=== PATIENT | female | born 1995 | race Hispanic/Latino ===

== ENCOUNTER → 2018-06-18 | Emergency (ER) | payer BC ==
[2018-06-18 19:41] VITALS: BMI 31.2
--- NOTE | 2018-06-18 20:48 | OBHP ---
Datetime: 06/18/2018 20:01 IP Adm Impression: Term, intrauterine IP Admit Plan: Observation/Evaluation; Discharge home Admit Comment, IP Provider: 23 yo at 40 wks w/ EDC 06/18/2018 bu u/s who was sent from [facility] in [facility] for AUSTEN 7.41 cm/vertex today. Pt reports that her doctor is concerned that the fluid is lower than usual. Pt reports that her pantieds have felt wet for the last couple of days. Pt rep orts difficulty keeping food down, vomting x 2 weeks, denies VB, reports decreased FM today, reports feeling some cramps today. 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 No evidence of ruptured membranes on ex am. NST reactive. BPP 8/8, AUSTEN 13. Pt to be discharged home and will follow up w/ her OB tomorrow. Extremities - PN: Normal Abdomen - PN: Normal Back - PN: Normal Lungs - PN: Normal Heart - PN: Normal Neurologic - PN: Normal General - PN: Normal FHR - Baseline A Provider: 120's Membranes, Provider: Intact Contraction Comments Provider: irritability Comments, ACOG Physical Exam: Spec: watery white d/c in vault, neg nitrazine, neg ferning Pool Provider: Negative Nitrazine Provider: Negative Ferning Provider: Negative Vital Signs Provider: Reviewed IP Chief Complaint: evaluation NICHD Variability Prov Fetus A: Moderate 6-25bpm NICHD Accel Fetus A IP Provider: 15X15 FHR Category Provider Fetus A: Category I NICHD Decel Fetus A IP Provider: None Dilatation, Provider: 0 Effacement, Provider: 0 Station, Provider: -2 Genitourinary Exam: Normal
[2018-06-19 02:43] VITALS: BP 115/69; PULSE 84
--- NOTE | 2018-06-19 14:45 | US ---
Date of service: 06/18/2018 PROCEDURE: Biophysical profile HISTORY: decreased movement COMPARISON: None TECHNIQUE: Standard protocol for this study/examination. FINDINGS: FINDINGS: Biophysical profile score 8/8 Based on the followin. breathing movements: 2/2 2. Gross body movement: 2/2 3. tone: 2/2 4. Qualitative amniotic fluid index: 2/2 Quantitative amniotic fluid index 13.3 cm. Closed cervix 3.6 cm. Cephalic presentation. Fundal/posterior Placenta. No evidence of abruption or previa Gestational age derived from LMP 40 weeks. ASIA 06/18/2018.. Gestational age derived from the following biometric parameters thirty-eight weeks 2 days. ASIA 06/30/2018. Biparietal diameter 9.4 cm Head circumference 33.3 cm Abdominal circumference 34.7 cm Femur length 7.5 cm Estimated weight 348 for g Calculated cardiac rate 132 beats per min. Closed cervix measuring 3.60 cm IMPRESSION: Biophysical profile score 8/8. Live intrauterine gestation 38 weeks 2 days. Gestational concordance documented. Additional information provided above. Concordant results (preliminary interpretation) provided by [facility]. Procedure Completed: 20:19 Final Interpretation: 14:43. June 19, 2018.
== END | disposition home or self-care (01) ==
LOC: H.EROB2 18:39
DX: O41.03X0 Oligohydramnios, third trimester, not applicable or unspecified (principal); Z3A.40 40 weeks gestation of pregnancy; O48.0 Post-term pregnancy; O47.1 False labor at or after 37 completed weeks of gestation

== ENCOUNTER 2018-06-28 12:26 | Inpatient (IN) | payer BC ==
[2018-06-18 19:41] VITALS: BMI 31.2
[2018-06-28 21:59] LABS: HEMOGLOBIN 12.7 g/dL (12.0-16.0); MEAN CELL VOLUME 84.8 fl (81.0-99.0); MEAN CORPUSCULAR HEMOGLOBIN 28.4 pg (27.0-31.0); MEAN CORPUSCULAR HGB CONC 33.5 g/dL (33.0-37.0); RBC 4.47 Mil/uL (3.80-5.20); RED CELL DISTRIBUTION WIDTH 15.8 % (11.5-14.5); WHITE BLOOD COUNT 8.9 K/uL (4.8-10.8)
--- NOTE | 2018-06-29 12:22 | OBPN ---
Datetime: 06/29/2018 10:13 IP Progress Impression: Normal progression of labor IP Informed Consent Obtain: Vaginal Delivery IP Progress Plan: Continue present management Contraction Comments Provider: q 3-4 mins FHR - Baseline A Provider: 125 IP Progress Note Comment: Patient evaluated, feeling contractions, did not want pain medication at t his time Ve=closed/thick/high [id number] mod bhumi, +accels, no decels TOCO = ctxing q 3-4 mins A/P 1. Cervidil removed by Dr. Pittman, pt still closed. Will start Cytotect for induction 2. CEFm and TOCO 3. Re-evaluate as needed NICHD Accel Fetus A IP Provider: [id number] NICHD Variability Prov Fetus A: Moderate 6-25bpm Dilatation, Provider: closed NICHD Decel Fetus A IP Provider: None Datetime: 06/28/2018 21:23 Vital Signs Provider: Reviewed; Within Normal Limits FHR Category Provider Fetus A: Category I Effacement, Provider: 10 Datetime: 06/18/2018 20:01 Pool Provider: Negative Nitrazine Provider: Negative Ferning Provider: Negative Membranes, Provider: Intact Station, Provider: -2
[2018-06-29] MEDS ORDERED: Phenaphthazine-PH Test Paper VI ONE (15:51)
[2018-06-29] MEDS ORDERED: Lactated Ringer's 2,000 ML IV ONE (16:55)
[2018-06-29] MEDS ORDERED: Oxytocin 30 UNIT 30 UNITS/500 ML BAG IV ONE ×2 (17:42→18:28)
[2018-06-29] MEDS ORDERED: Fentanyl/Bupivacaine HCl 250 ML EPI ONE (18:02)
[2018-06-29] MEDS: Lactated Ringer's 1,000 ML IV SCH (18:05)
[2018-06-30] MEDS: Lactated Ringer's 1,000 ML IV SCH (02:00)
[2018-06-30] MEDS ORDERED: Oxytocin 20 units in LR 2,000 ML IV ONE (05:27)
[2018-06-30] MEDS ORDERED: Lidocaine 2% MPF (5 ml) Inj ONE (05:31)
--- NOTE | 2018-06-30 09:01 | OBPN ---
Datetime: 06/30/2018 08:30 IP Progress Impression: Normal progression of labor; Reassuring heart rate IP Informed Consent Obtain: Vaginal Delivery; Risks, Benefits and Alternatives Discussed IP Progress Plan: Continue present management; Augmentation; Anticipate Vaginal Delivery Contraction Comments Provider: 2-4m FHR - Baseline A Provider: 135 Presentation-Admit: Vertex IP Progress Note Comment: OB Hospitalist on-call: Sign out rec'd Earlier noted to be 10 at 7:30am She feels comfortable onm left lateral with peanut in btw legs PNC: last sono 8lb last week acc to pt A: Second stage of labor PLAN: Discussion with patient about condition, labor, pain managment (rec'd epidural), medicxation s (Pitocin at 6miu/h)..anticipate NICHD Accel Fetus A IP Provider: 15X15 FHR Category Provider Fetus A: Category I NICHD Variability Prov Fetus A: Moderate 6-25bpm Dilatation, Provider: 10 Effacement, Provider: 100 Station, Provider: 0 NICHD Decel Fetus A IP Provider: None Datetime: 06/29/2018 10:13 Gestation - Est Wks by US: 41.4 Vital Signs Provider: Reviewed; Within Normal Limits
[2018-06-30] MEDS ORDERED: AMPicillin 2 GM in Sodium Chloride 0.9% 100 ML IVPB SCH (11:20)
[2018-06-30] MEDS: SODIUM CHLORIDE 0.9% IVPB SCH (11:30)
[2018-06-30] MEDS: GENTAMICIN IVPB SCH (11:30)
[2018-06-30 11:38] LABS: BASO % 0.1 % (0.0-2.0); HEMOGLOBIN 12.7 g/dL (12.0-16.0); LYMPH # 0.9 K/uL (1.0-4.3); LYMPH % 3.6 % (20.0-40.0); MEAN CELL VOLUME 84.9 fl (81.0-99.0); MEAN CORPUSCULAR HEMOGLOBIN 28.4 pg (27.0-31.0); MEAN CORPUSCULAR HGB CONC 33.5 g/dL (33.0-37.0); MEAN PLATELET VOLUME 9.5 fl (7.2-11.7); MONO # 2.3 K/uL (0.0-0.8); MONO % 9.5 % (0.0-10.0); NEUT # 20.7 K/uL (1.8-7.0); NEUT % 86.8 % (50.0-75.0); PLATELET COUNT 211 K/uL (130-400); RBC 4.48 Mil/uL (3.80-5.20); RED CELL DISTRIBUTION WIDTH 15.4 % (11.5-14.5); WHITE BLOOD COUNT 23.8 K/uL (4.8-10.8)
[2018-06-30] MEDS ORDERED: Lidocaine 2% PF (10 ml) Amp ONE ×3 (12:17→12:24)
[2018-06-30] MEDS ORDERED: Morphine 5 mg/10 ml preservative-free Inj(Duramorph) ONE (12:33)
[2018-06-30] MEDS ORDERED: Phenylephrine 10 mg/ml Inj ONE (12:35)
[2018-06-30 12:59] LABS: BANDS 3 % (0-2); LYMPHOCYTE 5 % (20-50); MONOCYTE 9 % (0-10); NEUTROPHIL 83 % (42-75); PLATELET ESTIMATE NORMAL (NORMAL); TOTAL CELLS COUNTED 100
[2018-06-30 13:00] LABS: ANISOCYTOSIS SLIGHT; LARGE PLATELETS PRESENT; TEARDROP CELLS SLIGHT
[2018-06-30] MEDS ORDERED: Oxycodone/Acetaminophen 5/325 mg Tab PO PRN (13:35)
[2018-06-30] MEDS ORDERED: DiphenhydrAMINE 50 mg/ml Inj IVP PRN (13:36)
[2018-06-30] MEDS ORDERED: Morphine 5 MG/ML SYRINGE IV PRN (13:36)
[2018-06-30] MEDS: OXYTOCIN/0.9 % NS 20 UNIT/1,000 ML BAG IV SCH ×2 (14:00→18:17)
--- NOTE | 2018-06-30 14:12 | OBPN ---
Datetime: 06/30/2018 12:00 IP Progress Impression: Arrest of dilatation/descent IP Informed Consent Obtain: Section Delivery; Risks, Benefits and Alternatives Discussed IP Progress Plan: Deliver- Section Contraction Comments Provider: 2-3m FHR Category Provider Fetus A: Category II Dilatation, Provider: 10 Effacement, Provider: 100 Station, Provider: 0 NICHD Decel Fetus A IP Provider: Variable Datetime: 06/30/2018 11:19 Membranes, Provider: Ruptured IP Progress Note Comment: Patient febrile at 100.6; reports she feels contraction pain, otherwise no complaints. A/P Suspected chorioamnionitis Blood culture and CBC drawn Start ampcillin 2mg Q6 hrs, and gentamicin 5mg/kg (pt is 73 kg, so dose is 365 mg) daily Tylenol for fever Monitor VS Expect vaginal delivery Discussed w/ Dr. Lindsey [id number] OB Hospitalist on-call. Pt seen. Second stage of labor 0 staion...febrile in labor - agree woth note. Peds notified. MAHN DO Vital Signs Provider: Reviewed Vital Signs Provider Details: febrile 100.6
[2018-06-30] MEDS: AMPicillin 2 GM in Sodium Chloride 0.9% 100 ML IVPB SCH (18:12)
[2018-07-01] MEDS: AMPicillin 2 GM in Sodium Chloride 0.9% 100 ML IVPB SCH ×5 (00:12→23:27)
[2018-07-01 06:51] LABS: HEMOGLOBIN 10.4 g/dL (12.0-16.0); MEAN CELL VOLUME 85.3 fl (81.0-99.0); MEAN CORPUSCULAR HEMOGLOBIN 28.2 pg (27.0-31.0); MEAN CORPUSCULAR HGB CONC 33.1 g/dL (33.0-37.0); RBC 3.7 Mil/uL (3.80-5.20); RED CELL DISTRIBUTION WIDTH 15.7 % (11.5-14.5); WHITE BLOOD COUNT 15.9 K/uL (4.8-10.8)
--- NOTE | 2018-07-01 07:18 | OBPPN ---
Datetime: 07/01/2018 07:11 PP Pain Prov: Within normal limits PP Nausea Prov: Denies PP Flatus Prov: No PP BM Prov: No PP Abdomen/Uterus Prov: Normal PP Lochia Prov: Normal PP Vulva/Perineum Prov: Not Done PP C/S Incision Prov: Normal PP Progress Prov: Normal PP Comments Phys Exam Prov: Incision w/ bandage in place PP Impression Prov: Normal progression PP Plan Prov: Continue present management PP Progress Note Prov: POD 1 s/p primary c/s for arrrest of descent, doing well, breast and bottle f eeding Advance diet as tolerated OOB today Vital Signs Provider PP: Reviewed
[2018-07-01] MEDS: Multivitamin With Minerals Tab PO SCH (09:16)
[2018-07-01] MEDS: Oxycodone/Acetaminophen 5/325 mg Tab PO PRN ×2 (09:16→22:22)
[2018-07-01] MEDS: SODIUM CHLORIDE 0.9% IVPB SCH (11:16)
[2018-07-01] MEDS: GENTAMICIN IVPB SCH (11:16)
[2018-07-02] MEDS: AMPicillin 2 GM in Sodium Chloride 0.9% 100 ML IVPB SCH (05:21)
[2018-07-02 06:59] LABS: BASO % 0.3 % (0.0-2.0); EOS % 0.4 % (0.0-4.0); HEMOGLOBIN 11.4 g/dL (12.0-16.0); LYMPH # 2.8 K/uL (1.0-4.3); LYMPH % 22.5 % (20.0-40.0); MEAN CELL VOLUME 86.8 fl (81.0-99.0); MEAN CORPUSCULAR HEMOGLOBIN 28.4 pg (27.0-31.0); MEAN CORPUSCULAR HGB CONC 32.7 g/dL (33.0-37.0); MEAN PLATELET VOLUME 8.8 fl (7.2-11.7); MONO % 7.8 % (0.0-10.0); NEUT # 8.7 K/uL (1.8-7.0); RBC 4.03 Mil/uL (3.80-5.20); RED CELL DISTRIBUTION WIDTH 15.8 % (11.5-14.5); WHITE BLOOD COUNT 12.6 K/uL (4.8-10.8)
[2018-07-02] MEDS: Multivitamin With Minerals Tab PO SCH (08:02)
--- NOTE | 2018-07-02 10:09 | OBPPN ---
Datetime: 07/02/2018 07:20 PP Progress Note Prov: Patient seen and examined this AM, patient is , POD2 today. Patient re ports today ambulating to the bathroom w/o difficulties or dizziness, voiding well w/ no blood in uri ne, lochia is less than menses in volume, she si tolerating oral food, is passing gas per rectum but has not had a BM yet. Patient reports some pelvic pain that gets releief with pain medication. Jany damon denies MATTHEWS, N/V, dizziness, chest pain, SOB, palpitations. Patient c/o leg swelling ,but denies calf pain. Physical exam GEN:NAD HEENT: Normocephalic, EOMI RESP: CTA b/l CV: RRR, no murmurs noted ABD: soft, uterus firm at umbilical level, incision well aproximated, no redness or dischrge noted LE: no edema, Nelsy's negative. A/P 23 y/o , today in her POD2, patient was on antbs therapy on PPD1 for spiking fevers, jany damon is afebrile x more 24 h -D/C antibitoic tx -Motrin 600 mg PO q6h prn pain -Percocet 1 to 2 tbas PO q6h PRN pain/ severe -Ecourage and ambulation. -D/C david Millan MD PGY1. OB Hospitalist on-call. On rounds I saw and examined this jimi. Agree with note. She will be discharged POD 3 and follow up at my office 1-2w [facility]
[2018-07-03] MEDS: Oxycodone/Acetaminophen 5/325 mg Tab PO PRN (00:54)
[2018-07-03] MEDS: Multivitamin With Minerals Tab PO SCH (09:49)
--- NOTE | 2018-07-03 13:26 | OBDCSUM ---
Datetime: 07/03/2018 06:32 Discharged to, Provider: Home Follow up at, Provider: OBGYN Disch Instr Activity: Normal activity Disch Instr Diet: Regular Discharge Instructions, Provider: Routine instructions given Discharge Diagnosis, Provider: Term Delivered Discharge Time: 07/03/2018 12:50 Follow up in weeks, Provider: 7-11 days Contraception discussed, Prov: Yes Disch Activity Restrictions: No exercising; No lifting; No driving; No sexual activity; Nothing in v agina - Quanah, tampons, douche Discharge Comment, Provider: 23 y/o s/p C/section with 41.5 weeks of GA. Delivered baby girl on 06/30/18 @ 12:52, weight 3490 g, : 9/9. Patient is doing well, stable for discharge. Prescri ption given for pain. Physical exam GEN: NAD HEENT: Normocephalic, EOMI RESP: CTA b/l CV: RRR, no murmurs noted ABD: soft, uterus firm below umbilical level, incision well approximated, no redness or discharge noted LE: no edema, Nelsy's negative. D/C instructions: -Encourage -Ibuprofen 600 mg PO 1 tab PO Q6h for pain PRN -Percocet 5/325 mg 1 tab PO Q 6h PRN pain -Discharge today -Ambulate w/ caution, no heavy lifting, if bleeding, fever, abdominal pain without relief from Tyl enol go to ED - Instructions given for F/U with PMD visit within 1 to 2 weeks. Jeannine Millan MD PGY1 Contraception after Delivery: Control Pill/Patch
--- NOTE | 2018-07-03 13:26 | OBPPN ---
Datetime: 07/03/2018 06:23 PP Pain Prov: Within normal limits PP Nausea Prov: Denies PP Flatus Prov: Yes PP BM Prov: Yes PP Heart Prov: Normal PP Lungs Prov: Normal PP Abdomen/Uterus Prov: Normal PP Extremities Prov: Normal PP C/S Incision Prov: Normal PP Comments Phys Exam Prov: See progress note PP Impression Prov: Normal progression PP Plan Prov: Continue present management; Discharge PP Progress Note Prov: Patient seen and examined this AM, patient is , POD3 today. Patient re ports today ambulating to the bathroom w/o difficulties or dizziness, voiding well w/ no blood in uri ne, lochia is less than menses in volume, she is tolerating oral food, had a BM already. Patient repo rts some pelvic pain that gets relief with pain medication. Patient denies MATTHEWS, N/V, dizziness, chest pain, SOB, palpitations, calf pain. Physical exam GEN: NAD HEENT: Normocephalic, EOMI RESP: CTA b/l CV: RRR, no murmurs noted ABD: soft, uterus firm below umbilical level, incision well approximated, no redness or discharge noted LE: no edema, Nelsy's negative. A/P 23 y/o , with good progression going today in her PPD3 -Motrin 600 mg PO q6h prn pain -Percocet 1 tab PO q6h PRN pain/ severe -Encourage and ambulation. -D/C home today with instructions for f/u with PMD within 1 to 2 weeks. Jeannine Millan MD PGY1 ob attending addendum: pt seen _ examined by me. agree w/ above assessment and plan. (Annotations: Data stored by CPN on behalf of user) Vital Signs Provider PP: Reviewed; Within Normal Limits
[2018-07-04 02:03] VITALS: BP 112/73; PULSE 77; RESP 20; TEMP 98.7; O2SAT 98
--- NOTE | 2018-07-05 09:08 | OP ---
PROCEDURE DATE: 06/30/2018 PREOPERATIVE DIAGNOSES: Failure of descent and intrapartum fever. POSTOPERATIVE DIAGNOSES: Failure of descent and intrapartum fever. PROCEDURE: Primary low-transverse section via Pfannenstiel incision. SURGEON: Faustino Portillo DO [employer] SALES REPRESENTATIVE: Ervin Major MD (Dr. Ervin Major is a board certified OB-STRUCTURAL STEEL WORKER who was available to assist on this difficult case. He was present from the time of incision to the delivery of the , to the closure of the skin). SECOND [employer] SALES REPRESENTATIVE: Dr. Wagner, (PGY-2 Family Medicine). ANESTHESIOLOGIST: Cosme Woodard MD ANESTHESIA: Epidural. OPERATIVE FINDINGS: A live delivered from a cephalic presentation, scores of 9 and 9 given at 1 and 5 minutes respectively. Placenta was delivered intact spontaneously. Ovaries and tubes appeared to be within normal limits grossly. She tolerated the procedure well and was transferred to the recovery room in stable condition. All equipments, sponges, and needles accounted for. DESCRIPTION OF PROCEDURE: The patient was brought to the operating room. She had the compression boots placed on both lower extremities. Catheter was placed in the urethra and in to the bladder. Noted to be blood tinged urine because she has been fully dilated and pushing. She was placed in a supine position. She was then draped and prepped in the usual sterile manner. Once adequate anesthesia was obtained, a Pfannenstiel incision was made using a scalpel. Incision was then taken down to the underlying fascia using electrocautery. The fascia was nicked in the midline and extended bilaterally using electrocautery. The inferior aspect of the fascia was grasped using two Omayra clamps, tented up, and the rectus muscle was both bluntly and sharply dissected. The same was done with the superior aspect of the fascia. In the midline superiorly, rectus muscle was bluntly. Peritoneum was identified and tented up using 2 Iris clamps and then incised using Metzenbaum scissors. Upon entering the peritoneal cavity, incision was then extended superiorly and inferiorly with direct visualization of the bladder and intestines. Two wet lap pads were placed on the pericolic gutters. The peritoneum on the uterus was grasped using forceps and incised using Metzenbaum scissors. A bladder flap was created by extending this incision bilaterally. Using the Metzenbaum scissors, bladder flap was created digitally. Bladder blade was then inserted behind the bladder flap. A low-transverse incision was made using a scalpel. Upon entering the uterus, clear amniotic fluid was noted. Incision was then extended bilaterally using bandage scissors. Thereafter, the infant's head was delivered with assistance from below from one of the nurse. At first, the infants head was carefully delivered as atraumatically as possible, was bulb suctioned nasopharyngeally. The remainder of the was then delivered as atraumatically as possible. Cord was clamped and cut. Infant was crying spontaneously. Infant was handed to the barber in attendance. Cord bloods were obtained. Placenta was delivered intact spontaneously. Uterus was then exteriorized. Good contracture of the uterus was noted. IV Pitocin was given. The uterus was exteriorized, cleared of debris and clots. Lower uterine aspect was grasped using 2 Salome clamps and 2 clamps. 0 Vicryl suture was used to close the first layer of the uterus in an interlocking fashion. Second layer of the uterus was closed using 0 Vicryl suture imbricating the first layer. Good hemostasis was assured. Posterior cul-de-sac was noted to be cleared of debris and clots. Both lap pads in the pericolic gutters were removed and accounted for. The uterus was placed back into the peritoneal cavity. Copious irrigation was performed. Lower uterine incision was noted to have good hemostasis. All equipments were removed and accounted for. 0 Vicryl suture was used to approximate the peritoneum in a running fashion. Rectus muscle was noted to have good hemostasis. 0 Vicryl suture was used to approximate the rectus muscle x3. 0 Vicryl suture was used to approximate the fascial layer in a running fashion. Irrigation was performed. Hemostasis was assured using electrocautery. The subcuticular layer was then approximated using a 2-0 plain suture x3. A 3-0 plain suture was used to approximate the skin. Dermabond, Steri-Strips, and pressure bandage were applied. She tolerated the procedure well and was transferred to the recovery room in stable condition. All equipments, sponges, and needles accounted for. Faustino Portillo DO
== END 2018-07-03 12:50 | disposition home or self-care (01) | DRG 765 ==
LOC: H.EROB2 12:26 → H.L&D 12:46 → H.EROB2 21:40 → H.OB/GYN 06-30 17:52
PROVIDERS: ADMIT Obstetrics & Gynecology Gynecology; ATTEND Obstetrics & Gynecology Gynecology
PROC: 4A1HXCZ Monitoring of Products of Conception, Cardiac Rate, External Approach (ICD-10-PCS; 2018-06-28)
PROC: 10D00Z1 Extraction of Products of Conception, Low, Open Approach (ICD-10-PCS; principal; 2018-06-30)
DX: O48.0 Post-term pregnancy (principal); O75.2 Pyrexia during labor, not elsewhere classified; O62.0 Primary inadequate contractions; O32.4XX0 Maternal care for high head at term, not applicable or unspecified; Z3A.41 41 weeks gestation of pregnancy; Z37.0 Single live birth; O69.81X0 Labor and delivery complicated by cord around neck, without compression, not applicable or unspecified